=== PATIENT | female | born 1935 | race Caucasian/White ===

== ENCOUNTER 2017-10-25 11:36 | Inpatient (IN) | payer MEDICARE, OTHER ==
[~2017-10-25] VITALS: Ht 157.5 cm; Wt 48.3 kg
[2017-10-25] MEDS ORDERED: POLYETHYLENE GLYCOL 17 GM PACKET PO PRN (13:30)
[2017-10-25] MEDS ORDERED: ZOLPIDEM 5MG TABLET PO PRN ×2 (13:30→14:30)
[2017-10-25] MEDS ORDERED: ACETAMINOPHEN 325 MG TABLET PO PRN (13:30)
[2017-10-25] MEDS ORDERED: ONDANSETRON ODT 4 MG PO PRN (13:30)
[2017-10-25 13:43] VITALS: BP 134/82
[2017-10-25] MEDS ORDERED: LEVO100T5 PO (13:57)
[2017-10-25] MEDS ORDERED: ZOLP-413 PO (13:57)
[2017-10-25] MEDS ORDERED: DILT180C59 PO (13:57)
[2017-10-25] MEDS ORDERED: PLEASE ENTER HEIGHT AND WEIGHT AND ALLERGIES MC SCH (14:00)
[2017-10-25] MEDS ORDERED: PLEASE ENTER ALLERGIES MC SCH (14:00)
[2017-10-25] MEDS ORDERED: METO50TA82 PO (14:03)
[2017-10-25 14:18] LABS: BASOPHILS # (AUTO) 0.11 x10^3/uL (0-0.1); BASOPHILS % (AUTO) 3 % (0-1); EOSINOPHILS # (AUTO) 0.03 x10^3/uL (0-0.4); EOSINOPHILS % (AUTO) 1 % (1-7); LYMPHOCYTES # (AUTO) 0.73 x10^3/uL (1-3.4); LYMPHOCYTES % (AUTO) 23 % (22-44); MD NO; MEAN CORPUSCULAR HEMOGLOBIN 32.6 pg (27.0-34.8); MEAN CORPUSCULAR HGB CONC 34.5 g/dL (32.4-35.8); MEAN CORPUSCULAR VOLUME 94.4 fL (80-100); MEAN PLATELET VOLUME 8.4 fL (7.4-10.4); MONOCYTES # (AUTO) 0.28 x10^3/uL (0.2-0.8); MONOCYTES % (AUTO) 9 % (2-9); NEUTROPHILS # (AUTO) 2.06 x10^3/uL (1.8-6.8); NEUTROPHILS % (AUTO) 64 % (42-75); PLATELET COUNT 191 x10^3/uL (130-400); RED BLOOD COUNT 4.69 x10^6/uL (3.82-5.3); RED CELL DISTRIBUTION WIDTH 13.2 % (9.6-15.2)
[2017-10-25 14:26] LABS: ALANINE AMINOTRANSFERASE 25 U/L (12-78); ALBUMIN 3.4 g/dL (3.4-5.0); ANION GAP 6 mmol/L (5-15); CALCIUM 8.3 mg/dL (8.5-10.1); CHLORIDE 108 mmol/L (98-107); CREATININE 0.77 mg/dL (0.55-1.02)
[2017-10-25 14:35] LABS: ALKALINE PHOSPHATASE 74 U/L (45-117); BILIRUBIN,TOTAL 0.8 mg/dL (0.2-1.0); T4 (THYROXINE) 7.4 mcg/dL (4.8-13.9); THYROID STIMULATING HORMONE 0.506 mIU/L (0.358-3.740); TOTAL PROTEIN 6.3 g/dL (6.4-8.2)
[2017-10-25] MEDS ORDERED: GADOBUTROL 7.5 MMOL/7.5 ML PFS ONE (15:12)
[2017-10-25] MEDS: METOPROLOL TARTRATE 50 MG TABLET PO SCH (18:21)
[2017-10-25 19:18] VITALS: BP 115/62
[2017-10-25 22:27] LABS: CULTURE INDICATED? YES; MICROSCOPIC INDICATED
[2017-10-26 01:33] VITALS: BP 103/64
[2017-10-26] MEDS: LEVOTHYROXINE 100 MCG TABLET PO SCH (06:31)
[2017-10-26] MEDS: METOPROLOL TARTRATE 50 MG TABLET PO SCH ×2 (06:31→18:14)
[2017-10-26 07:10] VITALS: BP 108/63
[2017-10-26] MEDS: DILTIAZEM CD 180 MG CAP.ER.24H PO SCH (09:46)
[2017-10-26] MEDS: SENNA/DOCUSATE TABLET PO SCH (09:47)
[2017-10-26 12:40] VITALS: BP 137/66
[2017-10-26 20:00] VITALS: BP 111/63
[2017-10-27 01:08] VITALS: BP 122/66
[2017-10-27] MEDS: METOPROLOL TARTRATE 50 MG TABLET PO SCH ×2 (06:00→18:19)
[2017-10-27 06:10] VITALS: BP 105/69
[2017-10-27] MEDS: LEVOTHYROXINE 100 MCG TABLET PO SCH (06:12)
[2017-10-27 07:08] VITALS: BP 109/67
[2017-10-27] MEDS: SENNA/DOCUSATE TABLET PO SCH (09:57)
[2017-10-27] MEDS: DILTIAZEM CD 180 MG CAP.ER.24H PO SCH (09:57)
[2017-10-27 13:09] VITALS: BP 166/66
[2017-10-27 18:32] VITALS: BP 119/63
[2017-10-28 00:47] VITALS: BP 113/58
[2017-10-28 06:45] VITALS: BP 108/57
[2017-10-28] MEDS: METOPROLOL TARTRATE 50 MG TABLET PO SCH ×2 (08:38→18:29)
[2017-10-28] MEDS: DILTIAZEM CD 180 MG CAP.ER.24H PO SCH (08:38)
[2017-10-28] MEDS: LEVOTHYROXINE 100 MCG TABLET PO SCH (08:39)
[2017-10-28] MEDS: SENNA/DOCUSATE TABLET PO SCH (08:39)
[2017-10-28 14:50] VITALS: BP 100/59
[2017-10-28 19:30] VITALS: BP 100/57
[2017-10-29 01:18] VITALS: BP 127/71
[2017-10-29] MEDS: METOPROLOL TARTRATE 50 MG TABLET PO SCH ×2 (06:34→17:31)
[2017-10-29] MEDS: LEVOTHYROXINE 100 MCG TABLET PO SCH (06:34)
[2017-10-29 07:02] VITALS: BP 101/63
[2017-10-29] MEDS: SENNA/DOCUSATE TABLET PO SCH (08:55)
[2017-10-29] MEDS: DILTIAZEM CD 180 MG CAP.ER.24H PO SCH (08:55)
[2017-10-29 14:31] VITALS: BP 117/62
[2017-10-29 17:31] VITALS: BP 123/70
[2017-10-29 18:46] VITALS: BP 102/57
[2017-10-30 01:32] VITALS: BP 129/65
[2017-10-30] MEDS: LEVOTHYROXINE 100 MCG TABLET PO SCH (05:27)
[2017-10-30] MEDS: METOPROLOL TARTRATE 50 MG TABLET PO SCH ×2 (05:27→18:25)
[2017-10-30 06:04] LABS: BASOPHILS # (AUTO) 0.04 x10^3/uL (0-0.1); BASOPHILS % (AUTO) 1 % (0-1); EOSINOPHILS # (AUTO) 0.07 x10^3/uL (0-0.4); EOSINOPHILS % (AUTO) 2 % (1-7); LYMPHOCYTES # (AUTO) 0.92 x10^3/uL (1-3.4); LYMPHOCYTES % (AUTO) 28 % (22-44); MD NO; MEAN CORPUSCULAR HEMOGLOBIN 32.2 pg (27.0-34.8); MEAN CORPUSCULAR VOLUME 94.6 fL (80-100); MEAN PLATELET VOLUME 8.6 fL (7.4-10.4); MONOCYTES # (AUTO) 0.27 x10^3/uL (0.2-0.8); MONOCYTES % (AUTO) 8 % (2-9); NEUTROPHILS % (AUTO) 61 % (42-75); PLATELET COUNT 186 x10^3/uL (130-400); RED BLOOD COUNT 4.61 x10^6/uL (3.82-5.3); RED CELL DISTRIBUTION WIDTH 12.9 % (9.6-15.2)
[2017-10-30 06:11] LABS: ANION GAP 6 mmol/L (5-15); CHLORIDE 110 mmol/L (98-107)
[2017-10-30 06:14] LABS: ALANINE AMINOTRANSFERASE 25 U/L (12-78); ALKALINE PHOSPHATASE 67 U/L (45-117); BILIRUBIN,TOTAL 0.6 mg/dL (0.2-1.0); CREATININE 0.56 mg/dL (0.55-1.02); TOTAL PROTEIN 5.8 g/dL (6.4-8.2)
[2017-10-30 08:00] VITALS: BP 95/56
[2017-10-30] MEDS: SENNA/DOCUSATE TABLET PO SCH (09:14)
[2017-10-30] MEDS: DILTIAZEM CD 180 MG CAP.ER.24H PO SCH (09:14)
[2017-10-30 14:00] VITALS: BP 100/63
[2017-10-30 21:30] VITALS: BP 102/53
[2017-10-31 03:07] VITALS: BP 99/56
[2017-10-31] MEDS: LEVOTHYROXINE 100 MCG TABLET PO SCH (05:59)
[2017-10-31 06:00] VITALS: BP 123/62
[2017-10-31] MEDS: METOPROLOL TARTRATE 50 MG TABLET PO SCH ×2 (06:00→17:22)
[2017-10-31 08:08] VITALS: BP 112/64
[2017-10-31] MEDS: DILTIAZEM CD 180 MG CAP.ER.24H PO SCH (08:45)
[2017-10-31] MEDS: SENNA/DOCUSATE TABLET PO SCH (08:45)
[2017-10-31 13:24] VITALS: BP 112/61
[2017-10-31 19:24] VITALS: BP 102/58
[2017-11-01 01:05] VITALS: BP 100/51
[2017-11-01] MEDS: LEVOTHYROXINE 100 MCG TABLET PO SCH (06:15)
[2017-11-01 07:31] VITALS: BP 101/58
[2017-11-01] MEDS: DILTIAZEM CD 180 MG CAP.ER.24H PO SCH (09:18)
[2017-11-01] MEDS: METOPROLOL TARTRATE 50 MG TABLET PO SCH (09:18)
[2017-11-01] MEDS: SENNA/DOCUSATE TABLET PO SCH (09:19)
[2017-11-01 11:59] VITALS: BP 91/51
[2017-11-01 12:00] VITALS: BP 91/51
[2017-11-01] MEDS: METOPROLOL TARTRATE 25 MG TABLET PO SCH (17:55)
[2017-11-01 18:53] VITALS: BP 104/55
[2017-11-02 00:26] VITALS: BP 100/52
[2017-11-02 05:43] LABS: BASOPHILS # (AUTO) 0.04 x10^3/uL (0-0.1); BASOPHILS % (AUTO) 1 % (0-1); EOSINOPHILS # (AUTO) 0.06 x10^3/uL (0-0.4); EOSINOPHILS % (AUTO) 2 % (1-7); LYMPHOCYTES # (AUTO) 0.81 x10^3/uL (1-3.4); LYMPHOCYTES % (AUTO) 26 % (22-44); MD NO; MEAN CORPUSCULAR HEMOGLOBIN 32.6 pg (27.0-34.8); MEAN CORPUSCULAR HGB CONC 34.6 g/dL (32.4-35.8); MEAN CORPUSCULAR VOLUME 94.2 fL (80-100); MEAN PLATELET VOLUME 8.4 fL (7.4-10.4); MONOCYTES # (AUTO) 0.29 x10^3/uL (0.2-0.8); MONOCYTES % (AUTO) 9 % (2-9); NEUTROPHILS # (AUTO) 1.92 x10^3/uL (1.8-6.8); NEUTROPHILS % (AUTO) 62 % (42-75); PLATELET COUNT 182 x10^3/uL (130-400); RED BLOOD COUNT 4.54 x10^6/uL (3.82-5.3); RED CELL DISTRIBUTION WIDTH 12.9 % (9.6-15.2)
[2017-11-02 05:44] LABS: ANION GAP 5 mmol/L (5-15); CALCIUM 8.7 mg/dL (8.5-10.1); CHLORIDE 108 mmol/L (98-107)
[2017-11-02 05:49] LABS: ALANINE AMINOTRANSFERASE 22 U/L (12-78); ALBUMIN 3.1 g/dL (3.4-5.0); ALKALINE PHOSPHATASE 67 U/L (45-117); BILIRUBIN,TOTAL 0.8 mg/dL (0.2-1.0); CREATININE 0.64 mg/dL (0.55-1.02); TOTAL PROTEIN 5.8 g/dL (6.4-8.2)
[2017-11-02] MEDS: METOPROLOL TARTRATE 25 MG TABLET PO SCH ×2 (06:00→17:04)
[2017-11-02] MEDS: LEVOTHYROXINE 100 MCG TABLET PO SCH (06:33)
[2017-11-02 07:05] VITALS: BP 128/66
[2017-11-02] MEDS: SENNA/DOCUSATE TABLET PO SCH (08:22)
[2017-11-02] MEDS: DILTIAZEM CD 180 MG CAP.ER.24H PO SCH (08:22)
[2017-11-02 13:04] VITALS: BP 116/59
[2017-11-02 20:05] VITALS: BP 108/58
[2017-11-03 01:19] VITALS: BP 147/70
[2017-11-03] MEDS: LEVOTHYROXINE 100 MCG TABLET PO SCH (06:02)
[2017-11-03] MEDS: METOPROLOL TARTRATE 25 MG TABLET PO SCH ×2 (06:03→18:27)
[2017-11-03 07:07] VITALS: BP 121/64
[2017-11-03] MEDS: DILTIAZEM CD 180 MG CAP.ER.24H PO SCH (09:02)
[2017-11-03] MEDS: SENNA/DOCUSATE TABLET PO SCH (09:03)
[2017-11-03 13:39] VITALS: BP 93/48
[2017-11-03 18:27] VITALS: BP 100/48
[2017-11-04 01:07] VITALS: BP 121/58
[2017-11-04] MEDS: METOPROLOL TARTRATE 25 MG TABLET PO SCH ×2 (06:16→17:51)
[2017-11-04] MEDS: LEVOTHYROXINE 100 MCG TABLET PO SCH (06:16)
[2017-11-04 08:00] VITALS: BP 104/85
[2017-11-04] MEDS: SENNA/DOCUSATE TABLET PO SCH (08:35)
[2017-11-04 08:38] VITALS: BP 105/61
[2017-11-04] MEDS: DILTIAZEM CD 180 MG CAP.ER.24H PO SCH (08:39)
[2017-11-04 14:07] VITALS: BP 89/47
[2017-11-04 17:50] VITALS: BP 113/63
[2017-11-04 18:44] VITALS: BP 92/52
[2017-11-05 01:11] VITALS: BP 114/65
[2017-11-05] MEDS: LEVOTHYROXINE 100 MCG TABLET PO SCH (05:31)
[2017-11-05] MEDS: METOPROLOL TARTRATE 25 MG TABLET PO SCH ×2 (05:33→18:42)
[2017-11-05 06:37] VITALS: BP 102/60
[2017-11-05] MEDS: DILTIAZEM CD 180 MG CAP.ER.24H PO SCH (10:29)
[2017-11-05] MEDS: SENNA/DOCUSATE TABLET PO SCH (10:30)
[2017-11-05 13:04] VITALS: BP 110/67
[2017-11-05 19:15] VITALS: BP 130/61
[2017-11-06 01:27] VITALS: BP 134/64
[2017-11-06] MEDS: LEVOTHYROXINE 100 MCG TABLET PO SCH (05:43)
[2017-11-06] MEDS: METOPROLOL TARTRATE 25 MG TABLET PO SCH ×2 (05:44→18:05)
[2017-11-06 07:38] VITALS: BP 103/60
[2017-11-06] MEDS: DILTIAZEM CD 180 MG CAP.ER.24H PO SCH (09:00)
[2017-11-06] MEDS: SENNA/DOCUSATE TABLET PO SCH (09:12)
[2017-11-06 14:10] VITALS: BP 110/63
[2017-11-06 18:57] VITALS: BP 106/60
[2017-11-07 01:20] VITALS: BP 117/63
[2017-11-07] MEDS: LEVOTHYROXINE 100 MCG TABLET PO SCH (05:32)
[2017-11-07] MEDS: METOPROLOL TARTRATE 25 MG TABLET PO SCH ×2 (05:32→18:29)
[2017-11-07 06:45] VITALS: BP 104/62
[2017-11-07] MEDS: DILTIAZEM CD 180 MG CAP.ER.24H PO SCH (09:48)
[2017-11-07] MEDS: SENNA/DOCUSATE TABLET PO SCH (09:49)
[2017-11-07 14:34] VITALS: BP 95/47
[2017-11-07 19:00] VITALS: BP 105/56
[2017-11-08 00:12] VITALS: BP 103/56
[2017-11-08 05:13] VITALS: BP 111/51
[2017-11-08] MEDS: LEVOTHYROXINE 100 MCG TABLET PO SCH (05:15)
[2017-11-08] MEDS: METOPROLOL TARTRATE 25 MG TABLET PO SCH ×2 (05:15→18:34)
[2017-11-08 06:39] VITALS: BP 118/64
[2017-11-08] MEDS: DILTIAZEM CD 180 MG CAP.ER.24H PO SCH (09:25)
[2017-11-08] MEDS: SENNA/DOCUSATE TABLET PO SCH (09:25)
[2017-11-08 12:25] VITALS: BP 106/58
[2017-11-08] MEDS: ENOXAPARIN 40 MG/0.4 ML SQ SCH (18:34)
[2017-11-08 20:00] VITALS: BP 109/63
[2017-11-09 02:00] VITALS: BP 122/62
[2017-11-09] MEDS: LEVOTHYROXINE 100 MCG TABLET PO SCH (06:40)
[2017-11-09] MEDS: METOPROLOL TARTRATE 25 MG TABLET PO SCH ×2 (06:40→18:15)
[2017-11-09 07:40] VITALS: BP 119/69
[2017-11-09] MEDS: SENNA/DOCUSATE TABLET PO SCH (07:52)
[2017-11-09] MEDS: DILTIAZEM CD 180 MG CAP.ER.24H PO SCH (07:53)
[2017-11-09 13:48] VITALS: BP 123/71
[2017-11-09] MEDS: ENOXAPARIN 40 MG/0.4 ML SQ SCH (18:15)
[2017-11-09 20:00] VITALS: BP 116/62
[2017-11-10 02:00] VITALS: BP 129/67
[2017-11-10] MEDS: LEVOTHYROXINE 100 MCG TABLET PO SCH (05:23)
[2017-11-10] MEDS: METOPROLOL TARTRATE 25 MG TABLET PO SCH ×2 (05:24→18:22)
[2017-11-10 07:13] VITALS: BP 114/69
[2017-11-10 09:29] VITALS: BP 110/61
[2017-11-10] MEDS: DILTIAZEM CD 180 MG CAP.ER.24H PO SCH (09:32)
[2017-11-10] MEDS: SENNA/DOCUSATE TABLET PO SCH (09:32)
[2017-11-10 14:12] VITALS: BP 112/72
[2017-11-10] MEDS: ENOXAPARIN 40 MG/0.4 ML SQ SCH (17:11)
[2017-11-10 18:52] VITALS: BP 102/59
[2017-11-11 01:03] VITALS: BP 116/55
[2017-11-11] MEDS: METOPROLOL TARTRATE 25 MG TABLET PO SCH ×2 (06:00→18:25)
[2017-11-11 06:06] LABS: CREATININE 0.69 mg/dL (0.55-1.02)
[2017-11-11] MEDS: LEVOTHYROXINE 100 MCG TABLET PO SCH (06:11)
[2017-11-11 06:53] VITALS: BP 110/68
[2017-11-11] MEDS: SENNA/DOCUSATE TABLET PO SCH (08:52)
[2017-11-11 11:29] VITALS: BP 119/55
[2017-11-11] MEDS: DILTIAZEM CD 180 MG CAP.ER.24H PO SCH (11:41)
[2017-11-11 14:20] VITALS: BP 113/55
[2017-11-11] MEDS: ENOXAPARIN 40 MG/0.4 ML SQ SCH (17:16)
[2017-11-11 19:06] VITALS: BP 106/53
[2017-11-12 00:41] VITALS: BP 113/51
[2017-11-12] MEDS: LEVOTHYROXINE 100 MCG TABLET PO SCH (05:54)
[2017-11-12] MEDS: METOPROLOL TARTRATE 25 MG TABLET PO SCH ×2 (05:54→17:54)
[2017-11-12 08:25] VITALS: BP 101/50
[2017-11-12] MEDS: SENNA/DOCUSATE TABLET PO SCH (08:38)
[2017-11-12] MEDS: DILTIAZEM CD 180 MG CAP.ER.24H PO SCH (08:39)
[2017-11-12 12:31] VITALS: BP 112/68
[2017-11-12] MEDS: ENOXAPARIN 40 MG/0.4 ML SQ SCH (17:49)
[2017-11-12 17:52] VITALS: BP 129/60
[2017-11-12 21:17] VITALS: BP 107/52
[2017-11-13 03:27] VITALS: BP 124/59
[2017-11-13] MEDS: LEVOTHYROXINE 100 MCG TABLET PO SCH (05:59)
[2017-11-13] MEDS: METOPROLOL TARTRATE 25 MG TABLET PO SCH ×2 (06:00→17:54)
[2017-11-13 07:00] VITALS: BP 108/48
[2017-11-13 08:34] VITALS: BP 106/56
[2017-11-13] MEDS: SENNA/DOCUSATE TABLET PO SCH (08:35)
[2017-11-13] MEDS: DILTIAZEM CD 180 MG CAP.ER.24H PO SCH (08:35)
[2017-11-13 14:00] VITALS: BP 91/48
[2017-11-13 14:07] VITALS: BP 105/51
[2017-11-13] MEDS: ENOXAPARIN 40 MG/0.4 ML SQ SCH (17:35)
[2017-11-13 19:22] VITALS: BP 96/54
[2017-11-14 00:54] VITALS: BP 124/43
[2017-11-14] MEDS: LEVOTHYROXINE 100 MCG TABLET PO SCH (06:09)
[2017-11-14] MEDS: METOPROLOL TARTRATE 25 MG TABLET PO SCH ×2 (06:10→16:36)
[2017-11-14 07:47] VITALS: BP 106/51
[2017-11-14] MEDS: SENNA/DOCUSATE TABLET PO SCH (08:52)
[2017-11-14] MEDS: DILTIAZEM CD 180 MG CAP.ER.24H PO SCH (08:52)
[2017-11-14 12:56] VITALS: BP 99/52
[2017-11-14] MEDS: ENOXAPARIN 40 MG/0.4 ML SQ SCH (16:36)
[2017-11-14 16:38] VITALS: BP 123/73
[2017-11-14 20:00] VITALS: BP 103/62
[2017-11-15 02:00] VITALS: BP 118/60
[2017-11-15] MEDS: LEVOTHYROXINE 100 MCG TABLET PO SCH (05:24)
[2017-11-15] MEDS: METOPROLOL TARTRATE 25 MG TABLET PO SCH ×2 (05:25→17:11)
[2017-11-15 06:28] VITALS: BP 115/69
[2017-11-15] MEDS: SENNA/DOCUSATE TABLET PO SCH (09:04)
[2017-11-15] MEDS: DILTIAZEM CD 180 MG CAP.ER.24H PO SCH (09:04)
[2017-11-15 12:20] VITALS: BP 110/56
[2017-11-15] MEDS: ENOXAPARIN 40 MG/0.4 ML SQ SCH (17:11)
[2017-11-15 20:00] VITALS: BP 94/51
[2017-11-16 02:00] VITALS: BP 138/61
[2017-11-16] MEDS: LEVOTHYROXINE 100 MCG TABLET PO SCH (05:55)
[2017-11-16] MEDS: METOPROLOL TARTRATE 25 MG TABLET PO SCH ×2 (05:55→17:26)
[2017-11-16] MEDS: DILTIAZEM CD 180 MG CAP.ER.24H PO SCH (08:05)
[2017-11-16] MEDS: SENNA/DOCUSATE TABLET PO SCH (08:12)
[2017-11-16 08:50] VITALS: BP 129/71
[2017-11-16 12:11] VITALS: BP 124/71
[2017-11-16] MEDS: ENOXAPARIN 40 MG/0.4 ML SQ SCH (17:26)
[2017-11-16 20:29] VITALS: BP 99/51
[2017-11-17 02:30] VITALS: BP 137/84
[2017-11-17] MEDS: LEVOTHYROXINE 100 MCG TABLET PO SCH (05:05)
[2017-11-17] MEDS: METOPROLOL TARTRATE 25 MG TABLET PO SCH ×2 (05:05→16:50)
[2017-11-17 07:35] VITALS: BP 109/63
[2017-11-17] MEDS: DILTIAZEM CD 180 MG CAP.ER.24H PO SCH (08:43)
[2017-11-17] MEDS: SENNA/DOCUSATE TABLET PO SCH (08:43)
[2017-11-17 13:47] VITALS: BP 110/60
[2017-11-17] MEDS: ENOXAPARIN 40 MG/0.4 ML SQ SCH (16:50)
[2017-11-17 19:52] VITALS: BP 97/58
[2017-11-18 03:53] VITALS: BP 100/51
[2017-11-18] MEDS: METOPROLOL TARTRATE 25 MG TABLET PO SCH ×2 (06:00→17:12)
[2017-11-18] MEDS: LEVOTHYROXINE 100 MCG TABLET PO SCH (06:01)
[2017-11-18 06:54] VITALS: BP 104/53
[2017-11-18] MEDS: SENNA/DOCUSATE TABLET PO SCH (09:00)
[2017-11-18] MEDS: DILTIAZEM CD 180 MG CAP.ER.24H PO SCH (09:08)
[2017-11-18 14:41] VITALS: BP 126/70
[2017-11-18 20:37] VITALS: BP 118/70
[2017-11-19 04:57] VITALS: BP 109/58
[2017-11-19] MEDS: LEVOTHYROXINE 100 MCG TABLET PO SCH (05:33)
[2017-11-19] MEDS: METOPROLOL TARTRATE 25 MG TABLET PO SCH ×2 (05:33→18:19)
[2017-11-19 07:16] VITALS: BP 117/68
[2017-11-19] MEDS: DILTIAZEM CD 180 MG CAP.ER.24H PO SCH (08:32)
[2017-11-19] MEDS: SENNA/DOCUSATE TABLET PO SCH (08:32)
[2017-11-19] MEDS: ENOXAPARIN 40 MG/0.4 ML SQ SCH (08:32)
[2017-11-19 14:54] VITALS: BP 120/72
[2017-11-19 20:08] VITALS: BP 95/52
[2017-11-20 00:33] VITALS: BP 100/61
[2017-11-20] MEDS: LEVOTHYROXINE 100 MCG TABLET PO SCH (06:13)
[2017-11-20] MEDS: METOPROLOL TARTRATE 25 MG TABLET PO SCH ×2 (06:13→18:09)
[2017-11-20 07:45] VITALS: BP 106/65
[2017-11-20] MEDS: SENNA/DOCUSATE TABLET PO SCH (09:41)
[2017-11-20] MEDS: DILTIAZEM CD 180 MG CAP.ER.24H PO SCH (09:41)
[2017-11-20 14:38] VITALS: BP 113/62
[2017-11-20 20:51] VITALS: BP 96/46
[2017-11-21 01:07] VITALS: BP 96/48
[2017-11-21] MEDS: METOPROLOL TARTRATE 25 MG TABLET PO SCH ×2 (06:00→18:04)
[2017-11-21] MEDS: LEVOTHYROXINE 100 MCG TABLET PO SCH (06:35)
[2017-11-21 07:50] VITALS: BP 94/57
[2017-11-21] MEDS: SENNA/DOCUSATE TABLET PO SCH (08:47)
[2017-11-21] MEDS: DILTIAZEM CD 180 MG CAP.ER.24H PO SCH (08:47)
[2017-11-21 14:24] VITALS: BP 105/47
[2017-11-21 19:46] VITALS: BP 106/69
[2017-11-22 00:11] VITALS: BP 129/69
[2017-11-22] MEDS: LEVOTHYROXINE 100 MCG TABLET PO SCH (05:10)
[2017-11-22] MEDS: METOPROLOL TARTRATE 25 MG TABLET PO SCH ×2 (05:10→18:19)
[2017-11-22 07:45] VITALS: BP 95/55
[2017-11-22] MEDS: DILTIAZEM CD 180 MG CAP.ER.24H PO SCH (09:00)
[2017-11-22] MEDS: SENNA/DOCUSATE TABLET PO SCH (09:09)
[2017-11-22 13:30] VITALS: BP 133/66
[2017-11-22 19:33] VITALS: BP 100/57
[2017-11-23 02:42] VITALS: BP 128/69
[2017-11-23 06:42] VITALS: BP 109/63
[2017-11-23] MEDS: LEVOTHYROXINE 100 MCG TABLET PO SCH (06:43)
[2017-11-23] MEDS: METOPROLOL TARTRATE 25 MG TABLET PO SCH ×2 (06:43→18:04)
[2017-11-23 07:39] VITALS: BP 121/68
[2017-11-23] MEDS: DILTIAZEM CD 180 MG CAP.ER.24H PO SCH (08:08)
[2017-11-23] MEDS: SENNA/DOCUSATE TABLET PO SCH (08:08)
[2017-11-23 13:20] VITALS: BP 102/66
[2017-11-23 18:35] VITALS: BP 101/60
[2017-11-24 01:16] VITALS: BP 108/54
[2017-11-24] MEDS: METOPROLOL TARTRATE 25 MG TABLET PO SCH ×2 (05:27→18:00)
[2017-11-24] MEDS: LEVOTHYROXINE 100 MCG TABLET PO SCH (05:27)
[2017-11-24 08:14] VITALS: BP 110/62
[2017-11-24] MEDS: SENNA/DOCUSATE TABLET PO SCH (09:31)
[2017-11-24] MEDS: DILTIAZEM CD 180 MG CAP.ER.24H PO SCH (09:31)
[2017-11-24 14:40] VITALS: BP 95/60
[2017-11-24 21:38] VITALS: BP 123/75
[2017-11-25 00:38] VITALS: BP 104/67
[2017-11-25] MEDS: METOPROLOL TARTRATE 25 MG TABLET PO SCH ×2 (06:00→18:00)
[2017-11-25] MEDS: LEVOTHYROXINE 100 MCG TABLET PO SCH (06:06)
[2017-11-25 07:23] VITALS: BP 96/58
[2017-11-25] MEDS: SENNA/DOCUSATE TABLET PO SCH (10:28)
[2017-11-25] MEDS: DILTIAZEM CD 180 MG CAP.ER.24H PO SCH (10:28)
[2017-11-25 13:55] VITALS: BP 107/72
[2017-11-25 18:00] VITALS: BP 98/51
[2017-11-25 18:51] VITALS: BP 98/51
[2017-11-26 00:51] VITALS: BP 105/57
[2017-11-26] MEDS: METOPROLOL TARTRATE 25 MG TABLET PO SCH ×2 (05:26→18:00)
[2017-11-26] MEDS: LEVOTHYROXINE 100 MCG TABLET PO SCH (05:44)
[2017-11-26 07:13] VITALS: BP 97/60
[2017-11-26] MEDS: SENNA/DOCUSATE TABLET PO SCH (10:33)
[2017-11-26] MEDS: DILTIAZEM CD 180 MG CAP.ER.24H PO SCH (10:33)
[2017-11-26 13:52] VITALS: BP 95/59
[2017-11-26 19:09] VITALS: BP 106/63
[2017-11-27 01:33] VITALS: BP 102/56
[2017-11-27 05:59] VITALS: BP 115/60
[2017-11-27] MEDS: LEVOTHYROXINE 100 MCG TABLET PO SCH (06:02)
[2017-11-27] MEDS: METOPROLOL TARTRATE 25 MG TABLET PO SCH ×2 (06:02→17:05)
[2017-11-27 07:07] VITALS: BP 105/51
[2017-11-27] MEDS: DILTIAZEM CD 180 MG CAP.ER.24H PO SCH (11:10)
[2017-11-27] MEDS: SENNA/DOCUSATE TABLET PO SCH (11:11)
[2017-11-27 13:31] VITALS: BP 105/63
[2017-11-27 18:46] VITALS: BP 102/59
[2017-11-28 01:39] VITALS: BP 109/64
[2017-11-28 05:30] VITALS: BP 126/73
[2017-11-28] MEDS: LEVOTHYROXINE 100 MCG TABLET PO SCH (05:32)
[2017-11-28] MEDS: METOPROLOL TARTRATE 25 MG TABLET PO SCH ×2 (05:32→18:15)
[2017-11-28 06:53] VITALS: BP 112/70
[2017-11-28] MEDS: DILTIAZEM CD 180 MG CAP.ER.24H PO SCH (10:17)
[2017-11-28] MEDS: SENNA/DOCUSATE TABLET PO SCH (10:17)
[2017-11-28 15:35] VITALS: BP 117/61
[2017-11-28 20:00] VITALS: BP 105/63
[2017-11-29 05:11] VITALS: BP 103/59
[2017-11-29] MEDS: LEVOTHYROXINE 100 MCG TABLET PO SCH (05:26)
[2017-11-29] MEDS: METOPROLOL TARTRATE 25 MG TABLET PO SCH ×2 (05:27→17:32)
[2017-11-29 06:53] VITALS: BP 113/64
[2017-11-29] MEDS: DILTIAZEM CD 180 MG CAP.ER.24H PO SCH (08:52)
[2017-11-29] MEDS: SENNA/DOCUSATE TABLET PO SCH (08:52)
[2017-11-29 12:24] VITALS: BP 109/63
[2017-11-29 20:29] VITALS: BP 106/56
[2017-11-30] VITALS (9 sets, daily range): BP systolic 86–177; BP diastolic 41–74
[2017-11-30] MEDS: METOPROLOL TARTRATE 25 MG TABLET PO SCH ×2 (05:47→17:09)
[2017-11-30] MEDS: LEVOTHYROXINE 100 MCG TABLET PO SCH (05:47)
[2017-11-30] MEDS: SENNA/DOCUSATE TABLET PO SCH (07:55)
[2017-11-30] MEDS: DILTIAZEM CD 180 MG CAP.ER.24H PO SCH (07:56)
[2017-12-01 03:28] VITALS: BP 110/67
[2017-12-01 06:08] VITALS: BP 106/67
[2017-12-01] MEDS: METOPROLOL TARTRATE 25 MG TABLET PO SCH ×2 (06:09→17:53)
[2017-12-01] MEDS: LEVOTHYROXINE 100 MCG TABLET PO SCH (06:10)
[2017-12-01 07:53] VITALS: BP 124/67
[2017-12-01] MEDS: DILTIAZEM CD 180 MG CAP.ER.24H PO SCH (08:01)
[2017-12-01] MEDS: SENNA/DOCUSATE TABLET PO SCH (08:01)
[2017-12-01 12:40] VITALS: BP 106/60
[2017-12-01 19:52] VITALS: BP 108/62
[2017-12-02] VITALS (7 sets, daily range): BP systolic 89–178; BP diastolic 51–72
[2017-12-02] MEDS: LEVOTHYROXINE 100 MCG TABLET PO SCH (05:26)
[2017-12-02] MEDS: METOPROLOL TARTRATE 25 MG TABLET PO SCH ×2 (05:26→16:43)
[2017-12-02] MEDS: SENNA/DOCUSATE TABLET PO SCH (08:11)
[2017-12-02] MEDS: DILTIAZEM CD 180 MG CAP.ER.24H PO SCH (08:11)
[2017-12-03 02:00] VITALS: BP 127/62
[2017-12-03 05:40] VITALS: BP 105/64
[2017-12-03] MEDS: METOPROLOL TARTRATE 25 MG TABLET PO SCH ×2 (05:42→19:29)
[2017-12-03] MEDS: LEVOTHYROXINE 100 MCG TABLET PO SCH (05:42)
[2017-12-03 09:42] VITALS: BP 102/53
[2017-12-03] MEDS: SENNA/DOCUSATE TABLET PO SCH (09:50)
[2017-12-03] MEDS: DILTIAZEM CD 180 MG CAP.ER.24H PO SCH (09:50)
[2017-12-03 13:48] VITALS: BP 132/70
[2017-12-03 19:25] VITALS: BP 118/65
[2017-12-03 19:30] VITALS: BP 110/61
[2017-12-04 03:39] VITALS: BP 109/60
[2017-12-04 06:27] VITALS: BP 110/66
[2017-12-04] MEDS: LEVOTHYROXINE 100 MCG TABLET PO SCH (06:29)
[2017-12-04] MEDS: METOPROLOL TARTRATE 25 MG TABLET PO SCH ×2 (06:29→18:00)
[2017-12-04 07:50] VITALS: BP 108/63
[2017-12-04] MEDS: DILTIAZEM CD 180 MG CAP.ER.24H PO SCH (10:17)
[2017-12-04] MEDS: SENNA/DOCUSATE TABLET PO SCH (10:17)
[2017-12-04 15:00] VITALS: BP 102/45
[2017-12-04 20:57] VITALS: BP 111/58
[2017-12-05 00:52] VITALS: BP 100/60
[2017-12-05] MEDS: LEVOTHYROXINE 100 MCG TABLET PO SCH (05:42)
[2017-12-05] MEDS: METOPROLOL TARTRATE 25 MG TABLET PO SCH ×2 (05:42→18:00)
[2017-12-05 08:00] VITALS: BP 112/61
[2017-12-05 08:49] VITALS: BP 90/53
[2017-12-05] MEDS: DILTIAZEM CD 180 MG CAP.ER.24H PO SCH (11:04)
[2017-12-05] MEDS: SENNA/DOCUSATE TABLET PO SCH (11:04)
[2017-12-05 14:36] VITALS: BP 104/57
[2017-12-05 19:25] VITALS: BP 100/60
[2017-12-06 02:52] VITALS: BP 129/62
[2017-12-06] MEDS: LEVOTHYROXINE 100 MCG TABLET PO SCH (06:02)
[2017-12-06] MEDS: METOPROLOL TARTRATE 25 MG TABLET PO SCH ×2 (06:02→18:13)
[2017-12-06 06:54] VITALS: BP 114/67
[2017-12-06] MEDS: SENNA/DOCUSATE TABLET PO SCH (08:41)
[2017-12-06] MEDS: DILTIAZEM CD 180 MG CAP.ER.24H PO SCH (08:42)
[2017-12-06 13:15] VITALS: BP 106/51
[2017-12-06 18:41] VITALS: BP 96/58
[2017-12-07 01:52] VITALS: BP 112/62
[2017-12-07] MEDS: METOPROLOL TARTRATE 25 MG TABLET PO SCH ×2 (05:34→18:46)
[2017-12-07] MEDS: LEVOTHYROXINE 100 MCG TABLET PO SCH (05:35)
[2017-12-07 07:28] VITALS: BP 129/65
[2017-12-07] MEDS: SENNA/DOCUSATE TABLET PO SCH (09:24)
[2017-12-07] MEDS: DILTIAZEM CD 180 MG CAP.ER.24H PO SCH (09:24)
[2017-12-07 13:29] VITALS: BP 125/71
[2017-12-07 19:00] VITALS: BP 112/74
[2017-12-08 02:18] VITALS: BP 118/64
[2017-12-08] MEDS: METOPROLOL TARTRATE 25 MG TABLET PO SCH ×2 (06:13→17:43)
[2017-12-08] MEDS: LEVOTHYROXINE 100 MCG TABLET PO SCH (06:13)
[2017-12-08 06:52] VITALS: BP 144/72
[2017-12-08] MEDS: DILTIAZEM CD 180 MG CAP.ER.24H PO SCH (07:50)
[2017-12-08] MEDS: SENNA/DOCUSATE TABLET PO SCH (07:51)
[2017-12-08 13:14] VITALS: BP 123/72
[2017-12-08 18:26] VITALS: BP 135/72
[2017-12-09 00:58] VITALS: BP 103/60
[2017-12-09 05:48] VITALS: BP 113/58
[2017-12-09] MEDS: LEVOTHYROXINE 100 MCG TABLET PO SCH (05:49)
[2017-12-09] MEDS: METOPROLOL TARTRATE 25 MG TABLET PO SCH ×2 (05:49→17:57)
[2017-12-09 08:07] VITALS: BP 107/53
[2017-12-09 09:33] VITALS: BP 91/45
[2017-12-09] MEDS: DILTIAZEM CD 180 MG CAP.ER.24H PO SCH (09:41)
[2017-12-09] MEDS: SENNA/DOCUSATE TABLET PO SCH (09:41)
[2017-12-09 13:01] VITALS: BP 140/57
[2017-12-09 19:25] VITALS: BP 107/62
[2017-12-10 01:13] VITALS: BP 123/66
[2017-12-10 05:00] VITALS: BP 123/65
[2017-12-10] MEDS: LEVOTHYROXINE 100 MCG TABLET PO SCH (05:01)
[2017-12-10] MEDS: METOPROLOL TARTRATE 25 MG TABLET PO SCH ×2 (05:01→19:25)
[2017-12-10 06:47] VITALS: BP 119/61
[2017-12-10] MEDS: DILTIAZEM CD 180 MG CAP.ER.24H PO SCH (09:55)
[2017-12-10] MEDS: SENNA/DOCUSATE TABLET PO SCH (09:55)
[2017-12-10 13:21] VITALS: BP 136/60
[2017-12-10 19:26] VITALS: BP 109/61
[2017-12-10 19:58] VITALS: BP 109/78
[2017-12-11 00:27] VITALS: BP 97/60
[2017-12-11] MEDS: METOPROLOL TARTRATE 25 MG TABLET PO SCH ×2 (05:32→18:03)
[2017-12-11] MEDS: LEVOTHYROXINE 100 MCG TABLET PO SCH (05:32)
[2017-12-11 08:09] VITALS: BP 105/63
[2017-12-11] MEDS: DILTIAZEM CD 180 MG CAP.ER.24H PO SCH (09:09)
[2017-12-11] MEDS: SENNA/DOCUSATE TABLET PO SCH (09:10)
[2017-12-11 14:00] VITALS: BP 128/70
[2017-12-11 18:36] VITALS: BP 115/61
[2017-12-12 01:18] VITALS: BP 122/79
[2017-12-12] MEDS: METOPROLOL TARTRATE 25 MG TABLET PO SCH ×2 (05:42→18:01)
[2017-12-12] MEDS: LEVOTHYROXINE 100 MCG TABLET PO SCH (05:43)
[2017-12-12 07:07] VITALS: BP 104/64
[2017-12-12] MEDS: DILTIAZEM CD 180 MG CAP.ER.24H PO SCH (09:35)
[2017-12-12] MEDS: SENNA/DOCUSATE TABLET PO SCH (09:35)
[2017-12-12 12:19] VITALS: BP 115/64
[2017-12-12 18:55] VITALS: BP 103/60
[2017-12-13 02:59] VITALS: BP 125/60
[2017-12-13] MEDS: LEVOTHYROXINE 100 MCG TABLET PO SCH (05:39)
[2017-12-13] MEDS: METOPROLOL TARTRATE 25 MG TABLET PO SCH ×2 (05:39→18:06)
[2017-12-13 06:58] VITALS: BP 94/55
[2017-12-13] MEDS: DILTIAZEM CD 180 MG CAP.ER.24H PO SCH (08:57)
[2017-12-13] MEDS: SENNA/DOCUSATE TABLET PO SCH (08:57)
[2017-12-13 12:26] VITALS: BP 104/60
[2017-12-13 19:20] VITALS: BP 107/61
[2017-12-14 03:40] VITALS: BP 120/70
[2017-12-14] MEDS: METOPROLOL TARTRATE 25 MG TABLET PO SCH ×2 (05:04→17:21)
[2017-12-14] MEDS: LEVOTHYROXINE 100 MCG TABLET PO SCH (05:04)
[2017-12-14 06:57] VITALS: BP 126/63
[2017-12-14] MEDS: SENNA/DOCUSATE TABLET PO SCH (08:29)
[2017-12-14] MEDS: DILTIAZEM CD 180 MG CAP.ER.24H PO SCH (08:29)
[2017-12-14 12:30] VITALS: BP 101/52
[2017-12-14 18:55] VITALS: BP 133/65
[2017-12-15 02:25] VITALS: BP 99/60
[2017-12-15 05:08] LABS: BASOPHILS # (AUTO) 0.09 x10^3/uL (0-0.1); BASOPHILS % (AUTO) 2 % (0-1); EOSINOPHILS # (AUTO) 0.11 x10^3/uL (0-0.4); EOSINOPHILS % (AUTO) 2 % (1-7); LYMPHOCYTES # (AUTO) 0.83 x10^3/uL (1-3.4); LYMPHOCYTES % (AUTO) 16 % (22-44); MD NO; MEAN CORPUSCULAR HEMOGLOBIN 32.2 pg (27.0-34.8); MEAN CORPUSCULAR HGB CONC 34.2 g/dL (32.4-35.8); MEAN CORPUSCULAR VOLUME 94.3 fL (80-100); MEAN PLATELET VOLUME 8.3 fL (7.4-10.4); MONOCYTES # (AUTO) 0.42 x10^3/uL (0.2-0.8); MONOCYTES % (AUTO) 8 % (2-9); NEUTROPHILS # (AUTO) 3.73 x10^3/uL (1.8-6.8); NEUTROPHILS % (AUTO) 72 % (42-75); PLATELET COUNT 211 x10^3/uL (130-400); RED BLOOD COUNT 4.36 x10^6/uL (3.82-5.3); RED CELL DISTRIBUTION WIDTH 12.8 % (9.6-15.2)
[2017-12-15 05:15] LABS: CHLORIDE 109 mmol/L (98-107)
[2017-12-15 05:21] LABS: ALANINE AMINOTRANSFERASE 19 U/L (12-78); ALKALINE PHOSPHATASE 88 U/L (45-117); ANION GAP 5 mmol/L (5-15); BILIRUBIN,TOTAL 0.8 mg/dL (0.2-1.0); CALCIUM 8.6 mg/dL (8.5-10.1); CHOLESTEROL, TOTAL 159 mg/dL (140-239); HDL CHOL % 33 % (28-40); HDL CHOLESTEROL (DIRECT) 53 mg/dL (40-60); LDL CHOLESTEROL,CALCULATED 94 mg/dL (54-169); LDL/HDL RATIO 1.8 (0.5-3.0); TOTAL PROTEIN 5.6 g/dL (6.4-8.2); TRIGLYCERIDES 59 mg/dL (50-200); VLDL CHOLESTEROL 12 mg/dL (0-25)
[2017-12-15 06:05] VITALS: BP 107/68
[2017-12-15] MEDS: METOPROLOL TARTRATE 25 MG TABLET PO SCH ×2 (06:08→17:45)
[2017-12-15] MEDS: LEVOTHYROXINE 100 MCG TABLET PO SCH (06:08)
[2017-12-15 06:45] VITALS: BP 95/56
[2017-12-15] MEDS: SENNA/DOCUSATE TABLET PO SCH (09:04)
[2017-12-15] MEDS: DILTIAZEM CD 180 MG CAP.ER.24H PO SCH (09:05)
[2017-12-15 13:55] VITALS: BP 116/64
[2017-12-15 21:48] VITALS: BP 106/63
[2017-12-16] VITALS (7 sets, daily range): BP systolic 91–112; BP diastolic 54–63
[2017-12-16] MEDS: METOPROLOL TARTRATE 25 MG TABLET PO SCH ×2 (05:24→17:36)
[2017-12-16] MEDS: LEVOTHYROXINE 100 MCG TABLET PO SCH (05:24)
[2017-12-16] MEDS: SENNA/DOCUSATE TABLET PO SCH (09:15)
[2017-12-16] MEDS: DILTIAZEM CD 180 MG CAP.ER.24H PO SCH (09:15)
[2017-12-17 02:42] VITALS: BP 108/57
[2017-12-17 05:32] VITALS: BP 111/48
[2017-12-17] MEDS: LEVOTHYROXINE 100 MCG TABLET PO SCH (05:34)
[2017-12-17] MEDS: METOPROLOL TARTRATE 25 MG TABLET PO SCH ×2 (05:34→18:10)
[2017-12-17 06:55] VITALS: BP 94/57
[2017-12-17] MEDS: DILTIAZEM CD 180 MG CAP.ER.24H PO SCH (09:00)
[2017-12-17] MEDS: SENNA/DOCUSATE TABLET PO SCH (09:00)
[2017-12-17 14:00] VITALS: BP 110/55
== END 2017-12-17 18:13 | DRG 884 ==
LOC: 4EST 13:24 → 4WST 10-28 11:50 → 4EST 11-29 09:44 → 3NE 12-16 11:37
PROVIDERS: ADMIT Internal Medicine; ATTEND Internal Medicine
DX: F03.90 Unspecified dementia, unspecified severity, without behavioral disturbance, psychotic disturbance, mood disturbance, and anxiety (principal); E78.00 Pure hypercholesterolemia, unspecified; I10 Essential (primary) hypertension; E03.9 Hypothyroidism, unspecified; E78.5 Hyperlipidemia, unspecified
CPT/HCPCS: 36415; 70553; 71046; 80053; 80061; 81001; 82565; 82607; 82746; 84436; 84443; 85025; 86480; 87086; A9585; J1650; 92523-GN